=== PATIENT | male | born 1985 | race Two or more races ===

== ENCOUNTER → 2021-02-04 | Emergency (ER) | payer OTHER ==
[~2021-02-04] VITALS: Ht 180.3 cm; Wt 88.9 kg
[~2021-02-04] MED LIST: LANTUS SOL100 UNIT/1; METFORMIN HCL750 MG
== END | disposition home or self-care (01) ==
LOC: ER 15:07
DX: U07.1 COVID-19 (principal); B34.9 Viral infection, unspecified

== ENCOUNTER 2021-02-09 09:00 | Outpatient (CLI) | payer OTHER | END 2021-02-09 09:30 | disposition home or self-care (01) | LOC: ASH CLINIC 09:00 | PROVIDERS: ATTEND Internal Medicine | DX: U07.1 COVID-19 (principal); Z23 Encounter for immunization ==

== ENCOUNTER 2024-01-19 09:17 | Emergency (ER) | payer OTHER ==
[~2024-01-19] VITALS: Ht 180.3 cm; Wt 89.8 kg
[2024-01-19] MEDS ORDERED: KETOROLAC TROMETHAMINE 60 MG VIAL IM ONE (09:45)
[2024-01-19] MEDS ORDERED: CEFTRIAXONE SODIUM 1,000 MG VIAL IM ONE (09:45)
[2024-01-19 10:35] LABS: HEMATOCRIT 40.7 % (39.0-48.0); HEMOGLOBIN 13.4 g/dL (13-16.00); MEAN CELL VOLUME 79.7 fL (80.0-100.00); MEAN CORPUSCULAR HEMOGLOBIN 26.3 pg (27.00-32.0); MEAN CORPUSCULAR HGB CONC 32.9 g/dl (32.0-36.0); PLATELET COUNT 387 K/uL (150-450); RED CELL DISTRIBUTION WIDTH 12.8 % (11.5-14.5)
[2024-01-19] MEDS ORDERED: PEPCID AC20 MG PO (11:08)
[2024-01-19] MEDS ORDERED: AZITHROMYCIN250 MG PO (11:08)
== END 2024-01-19 11:50 | disposition home or self-care (01) ==
LOC: ER 09:19
PROVIDERS: General Practice
DX: R07.0 Pain in throat (principal); Z20.822 Contact with and (suspected) exposure to COVID-19; E11.9 Type 2 diabetes mellitus without complications; Z79.4 Long term (current) use of insulin

== ENCOUNTER 2024-01-29 07:48 | Emergency (ER) | payer OTHER ==
[~2024-01-29] VITALS: Ht 180.3 cm; Wt 89.8 kg
[~2024-01-29 07:48] MED LIST changes: +AZITHROMYCIN250 MG PO; +PEPCID AC20 MG PO
[2024-01-29] MEDS ORDERED: MESALAMINE800 MG (07:55)
[2024-01-29] MEDS ORDERED: BUPROPION HCL75 MG PO (07:55)
[2024-01-29] MEDS ORDERED: TRAZODONE HCL150 MG (07:55)
[2024-01-29] MEDS ORDERED: 0.9 % SODIUM CHLORIDE 1,000 ML IV SCH (09:30)
[2024-01-29] MEDS ORDERED: CEFTRIAXONE SODIUM 2,000 MG VIAL IM ONE (09:30)
[2024-01-29 10:14] LABS: URINE APPEARANCE Clear; URINE BILIRRUBIN Negative (NEGATIVE); URINE BLOOD Negative; URINE COLOR Yellow; URINE KETONE Trace (NEGATIVE); URINE LEUKOCYTE Negative; URINE NITRATE Negative; URINE PROTEIN 30 (NEGATIVE); URINE UROBILINOGEN 0.2 E.U./dl
[2024-01-29 10:18] LABS: URINE BACTERIA 4.8 uL (0.0-1933); URINE RBC 8.6 uL (0.0-20.8)
[2024-01-29 10:21] LABS: HEMATOCRIT 42.7 % (39.0-48.0); HEMOGLOBIN 13.6 g/dL (13-16.00); MEAN CELL VOLUME 80.3 fL (80.0-100.00); MEAN CORPUSCULAR HEMOGLOBIN 25.5 pg (27.00-32.0); MEAN CORPUSCULAR HGB CONC 31.8 g/dl (32.0-36.0); PLATELET COUNT 462 K/uL (150-450); RED BLOOD COUNT 5.32 M/uL (4.00-6.00)
[2024-01-29] MEDS ORDERED: CEFTRIAXONE SODIUM 2,000 MG VIAL IV ONE (10:30)
[2024-01-29 10:31] LABS: URINE EPITHELIAL CELLS 0.1 uL (0.0-38.8); URINE GLUCOSE >=1000 MG/DL (NEGATIVE)
[2024-01-29 10:43] LABS: CALCIUM 9.4 mg/dL (8.5-10.1); CREATININE SERUM 1.01 mg/dL (0.70-1.30); GFR 81.81; POTASSIUM 3.96 mEq/L (3.5-5.1)
[2024-01-29] MEDS ORDERED: AMOX1TAB5 PO (14:36)
[2024-01-29] MEDS ORDERED: DEXAMETHASONE SODIUM PHOSP/PF 10 MG/ML VIAL IV ONE (14:45)
== END 2024-01-29 17:59 | disposition designated cancer center or children's hospital (05) ==
LOC: ER 07:50
PROVIDERS: Emergency Medicine
DX: J36 Peritonsillar abscess (principal); E11.9 Type 2 diabetes mellitus without complications; Z79.4 Long term (current) use of insulin
CPT/HCPCS: 36415; 70491; Q9965